=== PATIENT | male | born 1965 | race Caucasian/White ===

== ENCOUNTER → 2017-01-31 | Outpatient (CLI) | payer BC ==
--- NOTE | 2017-02-01 09:57 | REP ---
MR LUMBAR SPINE WITHOUT CONTRAST: HISTORY: Radiculopathy. Decreased signal intensity on T2-weighted images is present in the L2-3 through L5-S1 intervertebral discs. The discs are decreased in height. These findings are consistent with disc degeneration. There is no disc bulge or herniation at the L1-2 level. The L1 nerves exit the neural foramina without compression. A diffuse disc bulge is present at the L2-3 level. There is minimal compression of the thecal sac. There is hypertrophy of the posterior articulating facets. The L2 nerves exit the neural foramina without compression. A diffuse disc bulge is present at the L3-4 level. There is minimal compression of the thecal sac. There is hypertrophy of the posterior articulating facets. The L3 nerves exit the neural foramina without compression. A diffuse disc bulge is present at the L4-5 level. There is minimal compression of the thecal sac. There is hypertrophy of the posterior articulating facets. The L4 nerves exit the neural foramina without compression. A diffuse disc bulge is present at the L5-S1 level. This abuts the thecal sac. There is hypertrophy of the posterior articulating facets. The L5 nerves exit the neural foramina without compression. The conus medullaris is normal in appearance terminating at the level of the L1 vertebral body. Increased signal intensity on T2-weighted images is present in the endplates of L2 through L4 vertebral bodies. This represents degenerative change. A 3 cm cyst is present in the right kidney. IMPRESSION: 1. Diffuse disc bulges at the L2-3 through L4-5 levels with minimal thecal sac compression. 2. Diffuse disc bulge at the L5-S1 level. This abuts the thecal sac. 3. 3 cm right renal cyst. Ultrasound may be helpful for further evaluation. Signed by Shar Mckeon MD 02/01/2017 10:11 A
== END ==
LOC: M RAD 16:54
PROVIDERS: ATTEND Nurse Practitioner Family
DX: M54.16 Radiculopathy, lumbar region (principal); M54.41 Lumbago with sciatica, right side; G89.29 Other chronic pain; M51.06 Intervertebral disc disorders with myelopathy, lumbar region; N28.1 Cyst of kidney, acquired

== ENCOUNTER → 2017-02-20 | Outpatient (CLI) | payer BC ==
[~2017-02-20] MED LIST: ISOVUE-370 76% 100ML VIAL (Q9967) As Ordered ONE
--- NOTE | 2017-02-20 10:00 | REP ---
CT ANGIO HEAD: HISTORY: Carotid stenosis. CONTRAST: Isovue 370, 100 mL. There is on aneurysm or arteriovenous malformation. Calcified atherosclerotic plaques are present in the horizontal and vertical petrous segments of the internal carotid arteries as well as cavernous and supraclinoid internal carotid arteries. These produce areas of moderate to severe stenosis. A calcified atherosclerotic plaque is present in the distal left vertebral artery at the craniovertebral junction. This produces at least mild stenosis. Major intracranial vessels are patent. IMPRESSION: 1. There is no aneurysm or arteriovenous malformation. 2. Atherosclerotic disease as described above. Signed by Shar Mckeon MD 02/20/2017 10:24 A
--- NOTE | 2017-02-20 10:32 | REP ---
CT ANGIO NECK: HISTORY: Carotid stenosis. Contrast: Isovue 370, 100 mL. Calcified atherosclerotic plaques are present at the distal right common carotid artery and origins of the right external and internal carotid arteries. There is mild stenosis of 25% of the right internal carotid artery at its origin. There is severe stenosis of 95% of the right internal carotid artery 2.4 cm from its origin. There is moderate stenosis of 65% of the right external carotid artery at its origin. Calcified atherosclerotic plaques are present at the distal left common carotid artery and origins of the left external and internal carotid arteries. There is moderate stenosis of 35% of the left internal carotid artery at its origin. There is severe stenosis of 70% of the left internal carotid artery 1.2 cm from its origin. There is moderate stenosis of 60% of the left external carotid artery at its origin. Several calcified atherosclerotic plaques are present in the proximal common carotid arteries. These produce at least mild stenosis. Several calcified atherosclerotic plaques are present in the mid cervical vertebral arteries and vertebral arteries at the craniovertebral junction as well as in the proximal right vertebral artery. These produce mild stenosis. Calcified atherosclerotic plaques are present at the origin of the left common carotid artery and in the proximal left subclavian artery. There is no significant stenosis. A 1.8 cm hypodensity containing calcification is present in the right thyroid lobe. The left thyroid lobe is normal. IMPRESSION: 1. Mild stenosis of 25% of the right internal carotid artery at its origin. There is severe stenosis of 95% of the right internal carotid artery 2.4 cm from its origin. 2. Moderate stenosis of 35% of the left internal carotid artery at its origin. There is severe stenosis of 70% of the left internal carotid artery 1.2 cm from its origin. 3. There is a 1.5 cm hypodensity containing calcification in the right thyroid lobe . This may represent a cyst. Ultrasound may be helpful for further evaluation. Signed by Shar Mckeon MD 02/20/2017 11:07 A
== END ==
LOC: M RAD 08:10
PROVIDERS: ATTEND Surgery Vascular Surgery
DX: I65.23 Occlusion and stenosis of bilateral carotid arteries (principal)
CPT/HCPCS: 70496; 70498; Q9967

== ENCOUNTER → 2019-09-30 | Outpatient (CLI) | payer BC ==
[~2019-09-30] MED LIST changes: -ISOVUE-370 76% 100ML VIAL (Q9967) As Ordered ONE; +PROHANCE 279.3MG/ML 15ML VIAL (A9576) As Ordered ONE; +PROHANCE 279.3MG/ML 5ML VIAL (A9576) As Ordered ONE
--- NOTE | 2019-09-30 13:34 | REP ---
MRA ABDOMINAL AORTA AND PELVIS: MRA abdominal aorta an pelvis performed following the intravenous administration of 35 mL ProHance. MIP reconstruction images are performed. Abdominal aorta is normal in caliber. Patent main renal artery is seen bilaterally. There is occlusion of the proximal right common iliac artery extending for a length of 4.4 cm. Patent segment of the distal right common iliac artery has a length of 2.2 cm. The right external iliac artery is occluded. There is flow in a moderately narrowed distal right external iliac artery. Right common femoral artery is patent with no stenosis. Right profunda is not visualized. There is patent flow in the right superficial femoral artery which demonstrates no focal stenosis. On the left the proximal common iliac artery demonstrates moderate degree of narrowing. There is focal moderate stenosis approximately 60-70% in the proximal left external iliac artery. Left common femoral artery is patent. Left profunda is patent with mild narrowing at its origin. Left superficial femoral artery is occluded 1.8 cm distal to its origin. Profunda collaterals appear to reconstitute a small left superficial femoral artery in the mid to distal thigh which demonstrates diffuse moderate narrowing. IMPRESSION: Occlusion proximal right common iliac artery. There is flow in the distal right common iliac artery. The right external iliac artery is occluded up to its distal aspect where it is moderately narrowed. Patent flow is seen distal to that into the right lower extremity. On the left there is moderate narrowing of the proximal common iliac artery. There is moderate focal stenosis of the proximal left external iliac artery 60-70%. Patent flow is seen distal to that, up to a point of occlusion of the proximal superficial femoral artery. Profunda collaterals reconstitute a moderately narrowed superficial femoral artery in the mid to distal thigh. Electronically Signed by Lalit Villarreal MD 09/30/2019 03:27 P
== END ==
LOC: M RAD 09:27
PROVIDERS: ATTEND Surgery Vascular Surgery
DX: M25.551 Pain in right hip (principal); M25.552 Pain in left hip; M54.5 Low back pain
CPT/HCPCS: A9576; C8902; C8920

== ENCOUNTER 2020-12-25 06:59 | Inpatient (IN) | payer BC ==
[~2020-12-25] VITALS: Ht 182.9 cm; Wt 101.9 kg
[2020-12-25] MEDS ORDERED: ROSU10TA6 PO (07:35)
[2020-12-25] MEDS ORDERED: OXYC1TAB23 PO (07:35)
[2020-12-25] MEDS ORDERED: DILT300C21 PO (07:35)
[2020-12-25] MEDS ORDERED: CLOP75TA2 PO (07:35)
[2020-12-25] MEDS ORDERED: OLME40TA PO (07:35)
[2020-12-25] MEDS ORDERED: ACET-683 PO (07:35)
[2020-12-25] MEDS ORDERED: PANT40TA29 PO (07:35)
[2020-12-25] MEDS ORDERED: ASPI81CH33 PO (07:35)
[2020-12-25] MEDS ORDERED: ROSU20TA5 (07:35)
[2020-12-25] MEDS ORDERED: CENT1TAB PO (07:36)
[2020-12-25 07:45] LABS: BASO # 0.1 10^3/uL (0.0-0.2); BASO % 0.8 % (0.0-1.0); EOS # 0.2 10^3/uL (0.0-0.5); EOS % 3.5 % (0.0-3.0); HEMATOCRIT 25.4 % (42.0-52.0); HEMOGLOBIN 8.2 g/dl (13.5-17.5); LYMPH # 0.7 10^3/uL (1.5-5.0); LYMPH % 11.1 % (24.0-44.0); MEAN CORPUSCULAR HEMOGLOBIN 25.4 pg (27.0-33.0); MEAN CORPUSCULAR HGB CONC 32.3 g/dl (32.0-36.5); MEAN CORPUSCULAR VOLUME 78.6 fl (80.0-96.0); MONO # 0.6 10^3/uL (0.0-0.8); MONO % 10.1 % (0.0-5.0); NEUTROPHILS # 4.7 10^3/uL (1.5-8.5); PLATELET COUNT, AUTOMATED 377 10^3/uL (150-450); RED BLOOD COUNT 3.23 10^6/uL (4.30-6.10); WHITE BLOOD COUNT 6.3 10^3/uL (4.0-10.0)
[2020-12-25] MEDS ORDERED: NS 1,000 ML IV ONE (07:45)
[2020-12-25] MEDS ORDERED: OXYMETAZOLINE 0.05% NASAL SPRAY (AFRIN) ONE (07:45)
[2020-12-25 07:56] LABS: ALT/SGPT 22 U/L (12-78); BILIRUBIN,DIRECT 0.2 MG/DL (0.0-0.2); BILIRUBIN,TOTAL 0.4 MG/DL (0.2-1.0); BLOOD UREA NITROGEN 19 MG/DL (7-18); CALCIUM LEVEL 8.7 MG/DL (8.5-10.1); CARBON DIOXIDE LEVEL 23 MEQ/L (21-32); CHLORIDE LEVEL 91 MEQ/L (98-107); CREATININE FOR GFR 0.98 MG/DL (0.70-1.30); GLOMERULAR FILTRATION RATE > 60.0 (>56); GLUCOSE, FASTING 94 MG/DL (70-100); POTASSIUM SERUM 4.7 MEQ/L (3.5-5.1); SODIUM LEVEL 121 MEQ/L (136-145); TOTAL PROTEIN 7.2 GM/DL (6.4-8.2)
[2020-12-25 08:03] LABS: INR 0.95; PARTIAL THROMBOPLASTIN TIME 27.5 SECONDS (24.2-38.5); PROTHROMBIN TIME 12.9 SECONDS (12.5-14.3)
[2020-12-25] MEDS ORDERED: DOXA1TAB42 PO (08:21)
[2020-12-25] MEDS ORDERED: TORS10TA3 PO (08:21)
[2020-12-25] MEDS ORDERED: ASPI81TA26 PO (09:40)
[2020-12-25] MEDS ORDERED: LORazepam 2 MG TAB PO PRN (09:45)
[2020-12-25 10:23] LABS: RSV AMPLIFICATION NEGATIVE (NEGATIVE)
--- NOTE | 2020-12-25 10:47 | HPEPDOC ---
[facility] Medical History & Physical Date of Admission Dec 25, 2020 Date of Service: Dec 25, 2020 Attending Physician: SERGIO JOAQUIN MD History and Physical CHIEF COMPLAINT: L epistaxis HISTORY OF PRESENT ILLNESS: 55 yo M with a history of CAD s/p CABG and PCI, PAD s/p femoral stenting, carotid artery disease s/p endarterectomy on ASA/plavix with last stenting procedure at least >2y ago, HTN, HLD, smoker, marijuana user and alcohol use disorder who originally presented to [facility] for persistent epistaxis that began around 5PM and they placed a Rhinorocket but he demanded that they remove it because it was uncomfortable and he was discharged home, who now presents to [facility] for persistent L epistaxis now s/p rhinorocket in the ED with a noted Hgb of 8.2 without clarity on his baseline without recent records, WBC 6.3, platelets 377. He was found be hyponatremic to 121, K 4.7, BUN was 19 and Cr 0.95. His INR was 0.95 and PTT was wnl, while LFTs were wnl. He was orthostatic in the ED and was given 1L NS bolus. ENT was consulted and recommended admission to medicine and will consult. Of note, Mr. Fowler reports that he missed an angiogram appt this past week with his vascular surgeon in [place] where he is undergoing evaluation. His extremities are WWP without any LE pain at present. I spoke with Dr. Echevarria about his ASA/plavix and we concluded to keep him on the ASA/plavix given burden of disease with ongoing PAD evaluations and will monitor his progress with the rhinorocket. He is otherwise on room air, reports no pain at present, is breathing comfortably, denies fever, chills, cough, recent travel, abdominal pain, diarrhea. He does endorse seeing black tarry stool this AM from swallowing all the epistaxis blood but did not have this pre-epistaxis. His last alcoholic drink was at 8PM last night. PAST MEDICAL HISTORY: PA, PVD CAD s/p CABG and PCI Carotid artery disease s/p endarterectomy Tobacco dependence Vit D deficiency GERD Lumbago with L sciatica HTN HLD Alcohol use disorder Osteoarthritis of bilateral hips. PAST SURGICAL HISTORY: Multiple vascular stent placements for extremities and cardiac CABG Endarterectomy Fem/pop bypass SOCIAL HISTORY: Marital status: Tobacco use: fci daily smoker ETOH: daily, with use disorder and possible dependence Illicit drug use: marijuana FAMILY HISTORY: Non contributory ALLERGIES: Please see below. REVIEW OF SYSTEMS: As noted in HPI, or otherwise negative 10 point ROS HOME MEDICATIONS: Please see below. PHYSICAL EXAMINATION: VITAL SIGNS: HDS, afebrile, saturating 99% on room air GENERAL APPEARANCE: Well appearing, NAD, speaking in full sentences HEENT: NCAT, rocket in L nare, no surrounding blood, with end of rocket tagged to L cheek, no facial plethora, MMM CARDIOVASCULAR: RRR, no m/r/g LUNGS: CTAB ABDOMEN: obese, normoactive sounds, soft, NTND EXTREMITIES: WWP, no edema NEUROLOGICAL: CN2-12 intact, speech clear, moving all extremities PSYCHIATRIC: AOx3 LABORATORY DATA: Noted above IMAGING:None MICROBIOLOGY: Please see below. ASSESSMENT: 5 yo M with a history of CAD s/p CABG and PCI, PAD s/p femoral stenting, carotid artery disease s/p endarterectomy on ASA/plavix with last stenting procedure at least >2y ago, HTN, HLD, smoker, marijuana user and alcohol use disorder who originally presented to [facility] for persistent epistaxis and refused rhinorocket who now presents to [facility] for persistent L epistaxis now s/p rhinorocket and being admitted with anemia and hyponatremia. Epistaxis: -s/p rhinorocket placed in ED -consulted ENT -per my discussion with Dr. Echevarria, will for now plan to continue ASA/plavix that we may have to stop if bleeding is persistent per direction of ENT. Should be able to hold for a few days if necessary without recently placed stents. Anemia: Patient reports recently having received an infusion? but is not able to given a clear history of what was the product that was infused. -Iron studies -goal Hgb >8 given cardiac disease Alcohol use disorder: -CIWA with symptom triggered PO ativan PRN, multivitamin, folic acid Hyponatremia: likely 2/2 alcohol consumption with no adequate fluid consumption. Hypovolemic. -s/p 1L NS -100cc/hr NS -recheck BMP in the AM Orthostasis: 2/2 dehydration vs. 2/2 significant blood loss -giving IVF -goal Hgb >8 CAD s/p CABG and PCI -continue ASA/plavix -continue ARB -coninue rosuvastatin CHF, unclear subtype: no evidence of overload, actually volume down -hold torsemide -will give 1 more liter of NS, for total 2L -continue ARB GERD: -continue PPI HTN: -continue home dilt ER and ARB -holding loop diuretic Chronic back pain: -continue home tylenol 1gQ8HP and percocet PRN BPH: -doxazosin DVT ppx: TEDs and SCDs Dispo: Inpatient, med/surg Vital Signs Vital Signs Date Time Temp Pulse Resp B/P (MAP) Pulse Ox O2 Delivery O2 Flow Rate FiO2 12/25/20 09:45 76 18 145/50 (81) 98 Room Air 12/25/20 06:59 97.8 Laboratory Data Labs 24H Laboratory Tests 2 12/25/20 07:28: Immature Granulocyte % (Auto) 0.5, Neutrophils (%) (Auto) 74.0H, Lymphocytes (%) (Auto) 11.1L, Monocytes (%) (Auto) 10.1H, Eosinophils (%) (Auto) 3.5H, Basophils (%) (Auto) 0.8, Neutrophils # (Auto) 4.7, Lymphocytes # (Auto) 0.7L, Monocytes # (Auto) 0.6, Eosinophils # (Auto) 0.2, Basophils # (Auto) 0.1, Nucleated Red Blood Cells % (auto) 0.0, Prothrombin Time 12.9, Prothromb Time International Ratio 0.95, Activated Partial Thromboplast Time 27.5, Anion Gap 7L, Glomerular Filtration Rate > 60.0, Calcium Level 8.7, Total Bilirubin 0.4, Direct Bilirubin 0.2, Aspartate Amino Transf (AST/SGOT) 19, Alanine Aminotransferase (ALT/SGPT) 22, Alkaline Phosphatase 72, Total Protein 7.2, Albumin 4.0, Albumin/Globulin Ratio 1.3 12/25/20 09:34: CBC/BMP Laboratory Tests 12/25/20 07:28 Home Medications Scheduled Aspirin (Aspirin EC) 81 Mg Tablet.dr, 81 MG PO DAILY Clopidogrel Bisulfate (Clopidogrel) 75 Mg Tablet, 75 MG PO DAILY Diltiazem HCl (Diltiazem 24Hr ER) 300 Mg Cap.er.24h, 300 MG PO DAILY Doxazosin Mesylate (Doxazosin Mesylate) 1 Mg Tablet, 1 MG PO DAILY Multivit-Min/FA/Lycopen/Lutein (Centrum Silver Tablet) 1 Each Tablet, 1 TAB PO DAILY Olmesartan Medoxomil (Olmesartan Medoxomil) 40 Mg Tablet, 40 MG PO DAILY Pantoprazole Sodium (Pantoprazole Sodium) 40 Mg Tablet.dr, 40 MG PO DAILY Rosuvastatin Calcium (Rosuvastatin Calcium) 10 Mg Tablet, 10 MG PO DAILY Torsemide (Torsemide) 10 Mg Tablet, 10 MG PO DAILY Scheduled PRN Acetaminophen (Acetaminophen) 500 Mg Tablet, 1,000 MG PO Q8H PRN for PAIN / FEVER Oxycodone HCl/Acetaminophen (Oxycodone-Acetaminophen 5-325) 1 Each Tablet, 1 TAB PO BID PRN for PAIN Allergies Coded Allergies: No Known Allergies (Unverified , 12/25/20) A-FIB/CHADSVASC A-FIB History Current/History of A-Fib/PAF?: No Current PO Anticoag Therapy: No Age/Risk Factor Scoring CHADSVASC: CHADSVASC Response (Comments) Value Age Risk Factor Age < 65 years old 0 Gender Risk Factor Male 0 Hx of CHF Yes 1 Hx of HTN Yes 1 Hx of Stroke/TIA/or VTE No 0 Hx of Diabetes No 0 Hx of Vascular Disease Yes 1 Total 3 Treatment Reason Anticoagulant not given: Current bleeding SERGIO JOAQUIN MD Dec 25, 2020 10:47
[2020-12-25 11:20] VITALS: BP 160/65
[2020-12-25] MEDS: diltiaZEM **CD** 180 MG CAP PO SCH (11:35)
[2020-12-25] MEDS: FOLIC ACID 1 MG TAB PO SCH (11:36)
[2020-12-25] MEDS: ASPIRIN 81 MG ENTERIC TAB PO SCH (11:36)
[2020-12-25] MEDS: CLOPIDOGREL 75 MG TAB PO SCH (11:36)
[2020-12-25] MEDS: PERCOCET 5MG/325MG TAB PO PRN ×2 (11:37→21:39)
[2020-12-25] MEDS: ROSUVASTATIN 10 MG TAB (CRESTOR) PO SCH (11:40)
[2020-12-25] MEDS: PANTOPRAZOLE 40MG TAB (PROTONIX) PO SCH (11:40)
[2020-12-25] MEDS: THIAMINE 100 MG TAB PO SCH ×2 (11:40→19:35)
[2020-12-25] MEDS: NS 1,000 ML IV SCH ×3 (11:41→19:36)
[2020-12-25 14:00] VITALS: BP 153/75
[2020-12-25] MEDS: DOXAZOSIN MESYLATE 1 MG TAB PO SCH (15:54)
[2020-12-25] MEDS: OLMESARTAN MEDOXOMIL 20 MG TAB (BENICAR) PO SCH (15:54)
[2020-12-25] MEDS: ACETAMINOPHEN 500 MG TAB PO PRN (16:58)
[2020-12-25] MEDS ORDERED: AUGMENTIN 875 MG TAB PO STA (18:41)
[2020-12-25 22:00] VITALS: BP 128/65
[2020-12-26] VITALS (12 sets, daily range): BP systolic 129–164; BP diastolic 50–70
[2020-12-26] MEDS: ACETAMINOPHEN 500 MG TAB PO PRN ×2 (03:15→19:57)
[2020-12-26 06:35] LABS: MEAN CORPUSCULAR HEMOGLOBIN 25.8 pg (27.0-33.0); MEAN CORPUSCULAR HGB CONC 31.9 g/dl (32.0-36.5); MEAN CORPUSCULAR VOLUME 80.8 fl (80.0-96.0); PLATELET COUNT, AUTOMATED 323 10^3/uL (150-450); WHITE BLOOD COUNT 4.8 10^3/uL (4.0-10.0)
[2020-12-26 06:37] LABS: HEMOGLOBIN 6.7 g/dl (13.5-17.5)
[2020-12-26 07:05] LABS: ALBUMIN 3.6 GM/DL (3.2-5.2); ALT/SGPT 17 U/L (12-78); BILIRUBIN,TOTAL 0.4 MG/DL (0.2-1.0); BLOOD UREA NITROGEN 12 MG/DL (7-18); CALCIUM LEVEL 8.5 MG/DL (8.5-10.1); CARBON DIOXIDE LEVEL 25 MEQ/L (21-32); CHLORIDE LEVEL 98 MEQ/L (98-107); CREATININE FOR GFR 0.79 MG/DL (0.70-1.30); GLOMERULAR FILTRATION RATE > 60.0 (>56); GLUCOSE, FASTING 87 MG/DL (70-100); MAGNESIUM LEVEL 2.2 MG/DL (1.8-2.4); POTASSIUM SERUM 4.2 MEQ/L (3.5-5.1); SODIUM LEVEL 130 MEQ/L (136-145); TOTAL PROTEIN 6.1 GM/DL (6.4-8.2)
[2020-12-26] MEDS: ASPIRIN 81 MG ENTERIC TAB PO SCH (09:00)
[2020-12-26] MEDS: CLOPIDOGREL 75 MG TAB PO SCH (09:00)
[2020-12-26] MEDS ORDERED: ACETAMINOPHEN 500 MG TAB PO ONE (09:00)
[2020-12-26] MEDS: AUGMENTIN 875 MG TAB PO SCH ×2 (09:14→19:57)
[2020-12-26] MEDS: THIAMINE 100 MG TAB PO SCH ×2 (09:14→19:58)
[2020-12-26] MEDS: PANTOPRAZOLE 40MG TAB (PROTONIX) PO SCH (09:15)
[2020-12-26] MEDS: ROSUVASTATIN 10 MG TAB (CRESTOR) PO SCH (09:15)
[2020-12-26] MEDS: FOLIC ACID 1 MG TAB PO SCH (09:15)
[2020-12-26] MEDS: MULTIVITAMINS/MINERALS THERAP 1 TAB PO SCH (09:15)
[2020-12-26] MEDS: diltiaZEM **CD** 180 MG CAP PO SCH (09:16)
[2020-12-26] MEDS: DOXAZOSIN MESYLATE 1 MG TAB PO SCH (09:16)
[2020-12-26] MEDS: OLMESARTAN MEDOXOMIL 20 MG TAB (BENICAR) PO SCH (09:17)
--- NOTE | 2020-12-26 12:57 | IPNPDOC ---
Text Note Date of Service The patient was seen on 12/26/20. NOTE SUBJECTIVE: -No acute events overnight -Rhinorocket is uncomfortable. -Spoke with Dr. Root, will give blood, make NPO and will go down at 12.45 to office for cautery--> then heard back from Dr. Howe who saw him and had seen him yesterday and is following and he recommended leaving the packing in ideally for removal in the OR on , hold plavix, investigate anemia PHYSICAL EXAMINATION: VITAL SIGNS: HDS, afebrile, saturating 99% on room air GENERAL APPEARANCE: Well appearing, NAD, speaking in full sentences HEENT: NCAT, rocket in L nare, no surrounding blood, with end of rocket tagged to L cheek, no facial plethora, MMM CARDIOVASCULAR: RRR, no m/r/g LUNGS: CTAB ABDOMEN: obese, normoactive sounds, soft, NTND EXTREMITIES: WWP, no edema NEUROLOGICAL: CN2-12 intact, speech clear, moving all extremities PSYCHIATRIC: AOx3 LABORATORY DATA: Reviewed Hgb 6.7 Hct 21 platelets 323 WBC 4.8 Cr 0.79 IMAGING:None MICROBIOLOGY: Please see below. ASSESSMENT: 5 yo M with a history of CAD s/p CABG and PCI, PAD s/p femoral stenting, carotid artery disease s/p endarterectomy on ASA/plavix with last stenting procedure at least >2y ago, HTN, HLD, smoker, marijuana user and alcohol use disorder who originally presented to [facility] for persistent epistaxis and refused rhinorocket who now presents to [facility] for persistent L epistaxis now s/p rhinorocket and being admitted with anemia and hyponatremia. Epistaxis: -s/p rhinorocket placed in ED -consulted ENT --> to go down to Dr. Root's office at 12.45 for cauterization -per my discussion with Dr. Echevarria, will for now plan to continue ASA/plavix that we may have to stop if bleeding is persistent per direction of ENT. Should be able to hold for a few days if necessary without recently placed stents. -getting 2u pRBCs this AM -After speaking with Dr. Howe --> will hold plavix and continue ASA for at least 1 week to allow bleeding to stop. Anemia: Patient reports recently having received an infusion? but is not able to given a clear history of what was the product that was infused. -Iron studies -goal Hgb >8 given cardiac disease -giving 2u pRBCs. Acute drop likely 2/2 blood loss with combination of dil utional after hydration -no history of colonoscopy. May require GI consult Alcohol use disorder: -CIWA with symptom triggered PO ativan PRN, multivitamin, folic acid Hyponatremia: likely 2/2 alcohol consumption with no adequate fluid consumption. Hypovolemic. Improved -s/p 2L NS -improving, continue daily BMP while inpatient Orthostasis: 2/2 dehydration vs. 2/2 significant blood loss -giving IVF -goal Hgb >8 CAD s/p CABG and PCI -continue ASA/plavix -continue ARB -coninue rosuvastatin CHF, unclear subtype: no evidence of overload, actually volume down -hold torsemide -s/p total 2L -continue ARB GERD: -continue PPI HTN: -continue home dilt ER and ARB -holding loop diuretic Chronic back pain: -continue home tylenol 1gQ8HP and percocet PRN BPH: -doxazosin DVT ppx: TEDs and SCDs Dispo: Inpatient, med/surg VS,Fishbone, I+O VS, Fishbone, I+O Laboratory Tests 12/26/20 05:23 Vital Signs Date Time Temp Pulse Resp B/P (MAP) Pulse Ox O2 Delivery O2 Flow Rate FiO2 12/26/20 07:06 68 164/70 12/26/20 06:00 98.9 18 99 Room Air I&O- Last 24 Hours up to 6 AM 12/26/20 06:00 Intake Total 1250 ml Output Total 2750 ml Balance -1500 ml SERGIO JOAQUIN MD Dec 26, 2020 09:17
[2020-12-26 13:26] LABS: FERRITIN 405 NG/ML (26-388); IRON (FE) 87 UG/DL (65-175); PERCENT SATURATION 28.2 % (19.7-50.0); TOTAL IRON BINDING CAPACITY 308 UG/DL (250-450)
[2020-12-26 13:32] LABS: FOLATE 18.6 NG/ML (>5.4); VITAMIN B12 LEVEL 374 PG/ML (247-911)
[2020-12-26] MEDS: PERCOCET 5MG/325MG TAB PO PRN (15:28)
[2020-12-26 19:11] LABS: HEMOGLOBIN 8.2 g/dl (13.5-17.5)
[2020-12-26] MEDS: POLYSPORIN TOPICAL OINTMENT 15GM TOP SCH (22:59)
[2020-12-27] MEDS: PERCOCET 5MG/325MG TAB PO PRN (05:27)
[2020-12-27 06:00] VITALS: BP 177/74
[2020-12-27 07:03] LABS: HEMATOCRIT 26.5 % (42.0-52.0); HEMOGLOBIN 8.4 g/dl (13.5-17.5); MEAN CORPUSCULAR HEMOGLOBIN 26.4 pg (27.0-33.0); MEAN CORPUSCULAR HGB CONC 31.7 g/dl (32.0-36.5); MEAN CORPUSCULAR VOLUME 83.3 fl (80.0-96.0); PLATELET COUNT, AUTOMATED 286 10^3/uL (150-450); RED BLOOD COUNT 3.18 10^6/uL (4.30-6.10); WHITE BLOOD COUNT 5.5 10^3/uL (4.0-10.0)
[2020-12-27 07:30] LABS: ALBUMIN 3.6 GM/DL (3.2-5.2); ALT/SGPT 17 U/L (12-78); BILIRUBIN,TOTAL 0.4 MG/DL (0.2-1.0); BLOOD UREA NITROGEN 5 MG/DL (7-18); CALCIUM LEVEL 8.5 MG/DL (8.5-10.1); CARBON DIOXIDE LEVEL 24 MEQ/L (21-32); CHLORIDE LEVEL 99 MEQ/L (98-107); GLOMERULAR FILTRATION RATE > 60.0 (>56); GLUCOSE, FASTING 97 MG/DL (70-100); POTASSIUM SERUM 4.1 MEQ/L (3.5-5.1); SODIUM LEVEL 132 MEQ/L (136-145); TOTAL PROTEIN 6.2 GM/DL (6.4-8.2)
[2020-12-27] MEDS ORDERED: BACIOIN7 TOP (08:28)
[2020-12-27] MEDS ORDERED: FOLI1TAB11 PO (08:28)
[2020-12-27] MEDS ORDERED: THIA100TA PO (08:28)
--- NOTE | 2020-12-27 08:38 | DS.PDOC ---
Discharge Summary General Date of Admission Dec 25, 2020 at 09:43 Date of Discharge 12/27/2020 Attending Physician: SERGIO JOAQUIN MD Discharge Summary PROCEDURES PERFORMED DURING STAY: L nare cauterization for epistaxis, on 12/26/2020 ADMITTING DIAGNOSES: L sided epistaxis DISCHARGE DIAGNOSES: L sided epistaxis Anemia PAD CAD s/p CABG and PCI Carotid artery disease s/p endarterectomy Tobacco dependence Vit D deficiency GERD Lumbago with L sciatica HTN HLD Alcohol use disorder Osteoarthritis of bilateral hips. COMPLICATIONS/CHIEF COMPLAINT: Hyponatremia Left Sided Epistaxis. HISTORY OF PRESENT ILLNESS: 55 yo M with a history of CAD s/p CABG and PCI, PAD s/p femoral stenting, carotid artery disease s/p endarterectomy on ASA/plavix with last stenting procedure at least >2y ago, HTN, HLD, smoker, marijuana user and alcohol use disorder who originally presented to [facility] for persistent epistaxis that began around 5PM and they placed a Rhinorocket but he demanded that they remove it because it was uncomfortable and he was discharged home, who now pres ented to [facility] for persistent L epistaxis overnight and had rhinorocket replaced in the ED with a noted Hgb of 8.2 without clarity on his baseline without recent records, WBC 6.3, platelets 377. HOSPITAL COURSE: He was found be hyponatremic to 121, K 4.7, BUN was 19 and Cr 0.95. His INR was 0.95 and PTT was wnl, while LFTs were wnl. He was orthostatic in the ED and was given a 1L NS bolus. ENT was consulted and recommended admission to medicine and with ENT consult. Of note, Mr. Fowler reports that he missed an angiogram appt in the past week with his vascular surgeon in [place] where he is undergoing evaluation or his PAD. His extremities were WWP without any LE pain. I spoke with Dr. Echevarria about his ASA/plavix and we concluded initially to keep him on the ASA/plavix given burden of disease with ongoing PAD evaluations and monitor his progress with the rhinorocket. He was otherwise on room air, reports no pain at present, was breathing comfortably, denied fever, chills, cough, recent travel, abdominal pain, diarrhea. He was admitted to medicine and received fluids and was placed on CIWA for alcohol dependence for potential withdrawal and he was notably anemic after hydration to Hgb<7 and was given 2u pRBCs with good response. On 12/26 he had L nare cauterization by Dr. Root, ASA and Plavix were held and his bleeding stopped. We discussed that his anemia is definitely not due to nose bleeding and should have a GI evaluation because he has never had a colonoscopy. I am now discharging him home with GI referral for evaluation of potential GIB and cancer screening. DISCHARGE MEDICATIONS: Please see below. ALLERGIES: Please see below. PHYSICAL EXAMINATION ON DISCHARGE: VITAL SIGNS: Please see below. GENERAL APPEARANCE: Well appearing, NAD, speaking in full sentences HEENT: NCAT, rocket in L nare, no surrounding blood, with end of rocket tagged to L cheek, no facial plethora, MMM CARDIOVASCULAR: RRR, no m/r/g LUNGS: CTAB ABDOMEN: obese, normoactive sounds, soft, NTND EXTREMITIES: WWP, no edema NEUROLOGICAL: CN2-12 intact, speech clear, moving all extremities PSYCHIATRIC: AOx3 LABORATORY DATA: Please see below. IMAGING: none PROGNOSIS: good ACTIVITY: As tolerated DIET: 2g sodium DISCHARGE PLAN: Home with ENT, PCP, cardiology, vascular follow up and GI ref erral. Hold plavix for 5 more days DISPOSITION: Home DISCHARGE INSTRUCTIONS: Home with ENT, PCP, cardiology, vascular follow up and GI referral. Hold plavix for 5 more days ITEMS TO FOLLOWUP ON ON OUTPATIENT: Epistaxis Anemia GI evaluation and cancer screening Vascular follow up ENT follow up Cardiology follow up PCP follow up DISCHARGE CONDITION: Stable TIME SPENT ON DISCHARGE: 46 minutes. Vital Signs/I&Os Vital Signs Date Time Temp Pulse Resp B/P (MAP) Pulse Ox O2 Delivery O2 Flow Rate FiO2 12/27/20 06:00 97.6 62 18 177/74 (108) 98 Room Air I&O- Last 24 Hours up to 6 AM 12/27/20 06:00 Intake Total 2030 ml Output Total 2200 ml Balance -170 ml Laboratory Data Labs 24H Laboratory Tests 2 12/27/20 06:16: Nucleated Red Blood Cells % (auto) 0.0, Anion Gap 9, Glomerular Filtration Rate > 60.0, Calcium Level 8.5, Total Bilirubin 0.4, Aspartate Amino Transf (AST/SGOT) 11, Alanine Aminotransferase (ALT/SGPT) 17, Alkaline Phosphatase 65, Total Protein 6.2L, Albumin 3.6, Albumin/Globulin Ratio 1.4 CBC/BMP Laboratory Tests 12/26/20 19:02 12/27/20 06:16 Discharge Medications Scheduled Aspirin (Aspirin EC) 81 Mg Tablet.dr, 81 MG PO DAILY, (Reported) Bacitracin/Polymyxin B Sulfate (Bacitracin-Polymyxin Ointment) 15 Gm Oint...g., 0 TOP BID Clopidogrel Bisulfate (Clopidogrel) 75 Mg Tablet, 75 MG PO DAILY, (Reported) Diltiazem HCl (Diltiazem 24Hr ER) 300 Mg Cap.er.24h, 300 MG PO DAILY, (Reported) Doxazosin Mesylate (Doxazosin Mesylate) 1 Mg Tablet, 1 MG PO DAILY, (Reported) Folic Acid (Folic Acid) 1 Mg Tablet, 1 MG PO DAILY Multivit-Min/FA/Lycopen/Lutein (Centrum Silver Tablet) 1 Each Tablet, 1 TAB PO DAILY, (Reported) Olmesartan Medoxomil (Olmesartan Medoxomil) 40 Mg Tablet, 40 MG PO DAILY, (Reported) Pantoprazole Sodium (Pantoprazole Sodium) 40 Mg Tablet.dr, 40 MG PO DAILY, (Reported) Rosuvastatin Calcium (Rosuvastatin Calcium) 10 Mg Tablet, 10 MG PO DAILY, (Reported) Thiamine Hcl (Vitamin B-1) 100 Mg Tablet, 100 MG PO BID Torsemide (Torsemide) 10 Mg Tablet, 10 MG PO DAILY, (Reported) Scheduled PRN Acetaminophen (Acetaminophen) 500 Mg Tablet, 1,000 MG PO Q8H PRN for PAIN / FEVER, (Reported) Oxycodone HCl/Acetaminophen (Oxycodone-Acetaminophen 5-325) 1 Each Tablet, 1 TAB PO BID PRN for PAIN, (Reported) Allergies Coded Allergies: No Known Allergies (Unverified , 12/25/20) SERGIO JOAQUIN MD Dec 27, 2020 08:38
[2020-12-27] MEDS: PANTOPRAZOLE 40MG TAB (PROTONIX) PO SCH (08:40)
[2020-12-27] MEDS: ASPIRIN 81 MG ENTERIC TAB PO SCH (08:40)
[2020-12-27] MEDS: AUGMENTIN 875 MG TAB PO SCH (08:40)
[2020-12-27 08:41] VITALS: BP 164/65
[2020-12-27] MEDS: MULTIVITAMINS/MINERALS THERAP 1 TAB PO SCH (08:41)
[2020-12-27] MEDS: FOLIC ACID 1 MG TAB PO SCH (08:41)
[2020-12-27] MEDS: ROSUVASTATIN 10 MG TAB (CRESTOR) PO SCH (08:41)
[2020-12-27] MEDS: THIAMINE 100 MG TAB PO SCH (08:41)
[2020-12-27] MEDS: diltiaZEM **CD** 180 MG CAP PO SCH (08:42)
[2020-12-27] MEDS: DOXAZOSIN MESYLATE 1 MG TAB PO SCH (08:42)
[2020-12-27] MEDS: OLMESARTAN MEDOXOMIL 20 MG TAB (BENICAR) PO SCH (08:42)
[2020-12-27] MEDS: POLYSPORIN TOPICAL OINTMENT 15GM TOP SCH (08:43)
[2020-12-27] MEDS: ACETAMINOPHEN 500 MG TAB PO PRN (08:47)
[2020-12-27 09:00] VITALS: BP 164/65
== END 2020-12-27 11:33 | disposition home or self-care (01) | DRG 115 ==
LOC: M ED 06:59 → M ED INP 09:43 → M MSPAV 11:19
PROVIDERS: ADMIT Internal Medicine; ATTEND Internal Medicine
PROC: 2Y41X5Z Packing of Nasal Region using Packing Material (ICD-10-PCS; principal; 2020-12-26)
PROC: 30233N1 Transfusion of Nonautologous Red Blood Cells into Peripheral Vein, Percutaneous Approach (ICD-10-PCS; 2020-12-26)
DX: R04.0 Epistaxis (principal); I11.0 Hypertensive heart disease with heart failure; I50.9 Heart failure, unspecified; E87.1 Hypo-osmolality and hyponatremia; I25.10 Atherosclerotic heart disease of native coronary artery without angina pectoris; I73.9 Peripheral vascular disease, unspecified; E78.5 Hyperlipidemia, unspecified; F10.10 Alcohol abuse, uncomplicated; F17.200 Nicotine dependence, unspecified, uncomplicated; I95.1 Orthostatic hypotension; N40.0 Benign prostatic hyperplasia without lower urinary tract symptoms; F12.10 Cannabis abuse, uncomplicated; D64.9 Anemia, unspecified; K21.9 Gastro-esophageal reflux disease without esophagitis; M54.42 Lumbago with sciatica, left side; M16.0 Bilateral primary osteoarthritis of hip; Z95.820 Peripheral vascular angioplasty status with implants and grafts; Z95.5 Presence of coronary angioplasty implant and graft; Z79.82 Long term (current) use of aspirin; Z79.02 Long term (current) use of antithrombotics/antiplatelets; Z79.899 Other long term (current) drug therapy; Z20.822 Contact with and (suspected) exposure to COVID-19

== ENCOUNTER → 2022-05-28 | Outpatient (CLI) | payer BC ==
[~2022-05-28] MED LIST changes: +ACET-683 PO; +ASPI81CH33 PO; +ASPI81TA26 PO; +BACIOIN7 TOP; +CENT1TAB PO; +CLOP75TA2 PO; +DILT300C21 PO; +DOXA1TAB42 PO; +FOLI1TAB11 PO; +ISOVUE-370 76% 100ML VIAL As Ordered ONE; +OLME40TA PO; +OXYC1TAB23 PO; +PANT40TA29 PO; -PROHANCE 279.3MG/ML 15ML VIAL (A9576) As Ordered ONE; -PROHANCE 279.3MG/ML 5ML VIAL (A9576) As Ordered ONE; +ROSU10TA6 PO; +ROSU20TA5; +THIA100TA PO; +TORS10TA3 PO
== END ==
LOC: M RAD 12:18
PROVIDERS: ATTEND Surgery Vascular Surgery
DX: I73.9 Peripheral vascular disease, unspecified (principal)

== ENCOUNTER → 2023-09-23 | Outpatient (CLI) | payer BC ==
[~2023-09-23] MED LIST changes: -ISOVUE-370 76% 100ML VIAL As Ordered ONE; +LIDOCAINE 1% MDV 20ML VIAL As Ordered ONE; -ROSU20TA5; +ROSU20TA61
[2023-09-23 09:22] VITALS: TEMP 98.2
[2023-09-23 10:15] VITALS: BP 170/74; O2SAT 98
== END ==
LOC: M IRPRO 09:12
PROVIDERS: ATTEND Physician Assistant Medical
DX: E04.1 Nontoxic single thyroid nodule (principal)

== ENCOUNTER → 2025-07-27 | Outpatient (CLI) | payer BC ==
[~2025-07-27] MED LIST changes: +ISOVUE-370 76% 100 ML VIAL As Ordered ONE; -LIDOCAINE 1% MDV 20ML VIAL As Ordered ONE; -ROSU10TA6 PO; +ROSU10TA61 PO; -ROSU20TA61; +ROSU20TA86
== END ==
LOC: M RAD 08:14
PROVIDERS: ATTEND Surgery Vascular Surgery
DX: I65.23 Occlusion and stenosis of bilateral carotid arteries (principal)